=== PATIENT | female | born 1965 | race Caucasian/White ===

== ENCOUNTER 2016-09-30 20:20 | Emergency (ER) | payer OTHER ==
[~2016-09-30 20:20] MED LIST: /THIA10TA OR; AMBI10TA PO; BIAX500T13 PO; FLAG500T PO; FOLI1TAB OR; FOLI1TAB PO; FOLI1TAB4 PO; GI COCKTAIL PO; HYDR-3363 PO; IBUP200T2 PO; LORA0.5T PO; MAGN500T2 OR; MILKPOW PO; MULT1TAB8 PO; MULTIVIT PO; NICO14DI3 TD; NICO21DI4 TD; NICO21DI5 TD; NICO7DIS4 TD; NO HOME MEDS; NO HOME MEDS PER PT; No Historical Meds; OXAZ10CA3 PO; OXAZ15CA2 OR; PERC5TAB12 PO; PROT1TAB2 PO; SUCR1TA PO; THIA100T PO; THIA50CA PO; VITACAP31 PO; XANA0.5T OR; XANA0.5T PO
[2016-09-30] MEDS ORDERED: GABA-283 PO (20:47)
[2016-09-30] MEDS ORDERED: TIZA2CAP3 PO (20:48)
[2016-09-30] MEDS ORDERED: ZOFR4TAB3 PO (20:49)
[2016-09-30 21:13] LABS: MEAN CORPUSCULAR HEMOGLOBIN 32.8 pg (27.0-33.0); MEAN CORPUSCULAR HGB CONC 34.8 g/dl (32.0-36.5); MEAN CORPUSCULAR VOLUME 94.2 fl (80.0-96.0); RED CELL DISTRIBUTION WIDTH 12.1 % (11.5-14.5)
[2016-09-30 21:27] LABS: CONTROL LINE HCG INT CTR LINE PRESENT
[2016-09-30 21:43] LABS: ALBUMIN 4.3 GM/DL (3.2-5.2); ALBUMIN/GLOBULIN RATIO 1.39 (1.00-1.93); ALKALINE PHOSPHATASE 75 U/L (45-117); ALT/SGPT 24 U/L (12-78); ANION GAP 10 MEQ/L (8-16); AST/SGOT 20 U/L (15-37); BILIRUBIN,DIRECT < 0.1 MG/DL (0.0-0.2); BILIRUBIN,TOTAL 0.3 MG/DL (0.2-1.0); BLOOD UREA NITROGEN 8 MG/DL (7-18); CALCIUM LEVEL 7.8 MG/DL (8.5-10.1); CARBON DIOXIDE LEVEL 26 MEQ/L (21-32); CHLORIDE LEVEL 109 MEQ/L (98-107); CREATININE FOR GFR 0.71 MG/DL (0.55-1.02); GLOMERULAR FILTRATION RATE > 60.0 (>51); GLUCOSE, FASTING 83 MG/DL (70-105); POTASSIUM SERUM 3.6 MEQ/L (3.5-5.1); SODIUM LEVEL 145 MEQ/L (136-145); TOTAL PROTEIN 7.4 GM/DL (6.4-8.2)
[2016-09-30] MEDS ORDERED: MORPHINE 2 MG/ML 1ML SYRINGE IV ONE (22:00)
[2016-09-30] MEDS ORDERED: NS 1,000 ML IV ONE (22:00)
[2016-09-30] MEDS ORDERED: ISOVUE-370 76% 100ML VIAL (Q9967) As Ordered ONE (22:17)
[2016-09-30 23:05] LABS: METHADONE URINE NEGATIVE (NEGATIVE)
--- NOTE | 2016-09-30 23:30 | REPUSA ---
CLINICAL HISTORY: Abdominal pain. TECHNIQUE: Multiple axial, sagittal and coronal CT images were obtained through the abdomen and pelvi s after administration of intravenous contrast material. COMMENTS: The liver is of uniform attenuation without mass or defect. There is no intra or extrahepatic biliary ductal dilatation. The spleen is normal. The gallbladder is within normal limits. The pancreas is of normal contour and attenuation characteristics. There is no evidence of adrenal mass. Both kidneys demonstrate prompt and equal nephrograms. The kidneys are normal in size, shape and conf iguration. There is no evidence of renal or ureteral mass. No renal or ureteral calculi are identifie d. There is no hydroureter or hydronephrosis. No evidence for appendicitis. There is wall thickening noted involving duodenum and jejunum compatib le with enteritis. No evidence for small or large bowel obstruction. There is no evidence of abdomina l ascites or lymphadenopathy. There is no evidence of intrinsic or extrinsic bladder mass. There is no pelvic ascites or lymphadeno manoj. The uterus and ovaries are WNL. Images of the lung bases show no evidence of pleural or parenchymal mass. There are no pleural effusi ons. The bony structures are free of lytic or blastic lesions. IMPRESSION: Enteritis. Infectious and inflammatory etiologies are considered. Thank you for your kind referral of this patient.
[2016-09-30] MEDS ORDERED: MORPHINE 4 MG/ML 1ML SYRINGE IV ONE (23:45)
[2016-10-01] MEDS ORDERED: diphenhydrAMINE INJ 50MG/ML VIAL (J1200) IV STA (01:37)
[2016-10-01] MEDS ORDERED: HALOPERIDOL 5 MG/ML VIAL (J1630) IV STA (01:37)
[2016-10-01] MEDS ORDERED: NS 1,000 ML IV ONE (01:45)
[2016-10-01 03:32] VITALS: BP 113/70
--- NOTE | 2016-10-01 19:28 | ECGEPIP ---
Stationary ECG Study [facility] - ED Test Date: 2016-09-30 Pat Name: ZONIA APONTE Department: Room: - Gender: F [employer] Supervisor: brenda : 1965 Requested By: Jacob Davey Order Number: [id number] Reading MD: Debbie Kincaid Measurements Intervals [place] Rate: 83 P: 81 AL: 139 QRS: -84 QRSD: 86 T: 75 QT: 357 QTc: 421 Interpretive Statements SINUS RHYTHM INDETERMINATE AXIS PATTERN CONSISTENT WITH PULMONARY DISEASE LEFT ANTERIOR FASCICULAR BLOCK BASELINE ARTIFACT LIMITS INTERPRETATION INCREASED RATE 08/18/14 Electronically Signed On 10-01-2016 19:28:21 EDT by Debbie Kincaid
== END 2016-10-01 03:41 | disposition home or self-care (01) ==
LOC: M ED 22:01
DX: F10.220 Alcohol dependence with intoxication, uncomplicated (principal); T42.8X4A Poisoning by antiparkinsonism drugs and other central muscle-tone depressants, undetermined, initial encounter; T42.6X4A Poisoning by other antiepileptic and sedative-hypnotic drugs, undetermined, initial encounter; X58.XXXA Exposure to other specified factors, initial encounter; Y92.009 Unspecified place in unspecified non-institutional (private) residence as the place of occurrence of the external cause; R10.9 Unspecified abdominal pain; E03.9 Hypothyroidism, unspecified; F41.9 Anxiety disorder, unspecified; F32.9 Major depressive disorder, single episode, unspecified; Z79.899 Other long term (current) drug therapy; Z88.0 Allergy status to penicillin; Z88.1 Allergy status to other antibiotic agents; Z88.2 Allergy status to sulfonamides; Z91.018 Allergy to other foods; F17.200 Nicotine dependence, unspecified, uncomplicated
CPT/HCPCS: 74177; 80048; 80076; 80306; 81001; 83605; 84443; 84703; 85027; 87086; 93005; 93041; 96374; 96375; 96376; 99285; G0480; J1200; J1630; Q9967

== ENCOUNTER → 2017-05-18 | Outpatient (CLI) | payer OTHER | LOC: M WHC 15:02 | DX: Z12.31 Encounter for screening mammogram for malignant neoplasm of breast (principal) | CPT/HCPCS: 77067 ==

== ENCOUNTER → 2017-05-18 | Outpatient (REF) | payer OTHER | LOC: M SFHCWAGY 15:53 | DX: Z12.4 Encounter for screening for malignant neoplasm of cervix (principal) ==

== ENCOUNTER → 2017-12-27 | Outpatient (REF) | payer OTHER ==
[2017-12-27 17:51] LABS: TOTAL T3 93.6 NG/DL (60.0-181.0)
[2017-12-27 17:57] LABS: THYROXINE (T4) 8.4 UG/DL (4.5-12.0)
[2017-12-27 17:57] LABS: THYROID STIMULATING HORMONE 0.964 uIU/ML (0.358-3.740)
[2017-12-27 20:14] LABS: BASO % 0.7 % (0.0-1.0); EOS % 0.4 % (0.0-3.0); HEMATOCRIT 41.3 % (36.0-47.0); HEMOGLOBIN 14.2 g/dl (12.0-15.5); IMMATURE GRANULOCYTE % 0.4 % (0-3.0); LYMPH # 1.4 10^3/uL (1.5-4.5); LYMPH % 25.6 % (24.0-44.0); MEAN CORPUSCULAR HEMOGLOBIN 32.4 pg (27.0-33.0); MEAN CORPUSCULAR HGB CONC 34.4 g/dl (32.0-36.5); MEAN CORPUSCULAR VOLUME 94.3 fl (80.0-96.0); MONO # 0.5 10^3/uL (0.0-0.8); MONO % 8.4 % (0.0-5.0); NEUTROPHILS # 3.6 10^3/uL (1.8-7.7); NEUTROPHILS % 64.5 % (36.0-66.0); PLATELET COUNT, AUTOMATED 237 10^3/uL (150-450); RED BLOOD COUNT 4.38 10^6/uL (4.00-5.40); RED CELL DISTRIBUTION WIDTH 12.2 % (11.5-14.5); WHITE BLOOD COUNT 5.5 10^3/uL (4.0-10.0)
== END ==
LOC: M SFHCCLAY 09:48
DX: D72.829 Elevated white blood cell count, unspecified (principal); E07.9 Disorder of thyroid, unspecified

== ENCOUNTER → 2019-07-24 | Outpatient (REF) | payer MEDICAID, OTHER ==
[~2019-07-24] MED LIST changes: -BIAX500T13 PO; +BIAX500T14 PO; +FOLI1TAB11 PO; -FOLI1TAB4 PO; +GABA-845 PO; -NICO21DI5 TD; +NICO21DI6 TD; +TIZA2CAP PO; +ZOFR4TAB14 PO
[2019-07-24 11:54] LABS: THYROID STIMULATING HORMONE 0.885 uIU/ML (0.358-3.740); THYROXINE (T4) 8.7 UG/DL (4.5-12.0); TOTAL T3 82.8 NG/DL (60.0-181.0)
== END ==
LOC: M SFHCCLAY 08:41
PROVIDERS: ATTEND Family Medicine
DX: E07.9 Disorder of thyroid, unspecified (principal)

== ENCOUNTER → 2019-12-22 | Outpatient (CLI) | payer OTHER ==
--- NOTE | 2019-12-22 15:56 | REPMRS ---
Patient History The patient states she had a clinical breast exam in 11/2019. Patient is postmenopausal. Family history of pancreatic cancer in mother. No Hormone Replacement Therapy 3D TOMOSYNTHESIS WAS PERFORMED. [facility] lifetime risk for breast cancer is 7.6%. AURELIANO [facility] Digital Woman Screen Mammo: December 22, 2019 - Exam #: [id number] Bilateral CC and MLO view(s) were taken. Technologist: Gia Panda, Technologist Prior study comparison: May 18, 2017, digital woman screen mammo performed at [facility]. January 28, 2016, digital woman screen mammo performed at [facility]. FINDINGS: The breast tissue is extremely dense which could obscure a lesion on mammography. There has been no change in the appearance of the mammogram from the prior studies. There is a moderate amount of residual fibroglandular tissue which is fairly symmetric. There is no interval development of dominant mass, areas of architectural distortion, or clustered microcalcification typical of malignancy. No significant changes when compared with prior studies. Assessment: BI-RADS/ACR category 1 mammogram. Negative Mammogram. Recommendation Routine screening mammogram in 1 year (for women over age 40). This mammogram was interpreted with the aid of an FDA-approved computer-aided dectection system. Electronically Signed By: Bharat Andrade MD 12/22/19 [id number]
== END ==
LOC: M WHC 14:39
PROVIDERS: ATTEND Nurse Practitioner Women's Health
DX: Z12.31 Encounter for screening mammogram for malignant neoplasm of breast (principal); Z12.4 Encounter for screening for malignant neoplasm of cervix; Z78.0 Asymptomatic menopausal state; Z80.0 Family history of malignant neoplasm of digestive organs